=== PATIENT | female | born 1990 | race Two or more races ===

== ENCOUNTER 2017-08-26 07:00 | Day surgery (SDC) | payer OTHER ==
[~2017-08-26] VITALS: Ht 160 cm; Wt 70.3 kg
[~2017-08-26 07:00] MED LIST: TYLENOL-CODEINE1 TAB PO
== END 2017-08-26 13:00 | disposition home or self-care (01) ==
LOC: CIR.AMB 07:00 → SURH 10:00 → EDSTATUS 11:15 → SURH 11:15 → CIR.AMB 13:00 → O/R 14:00
DX: N80.1 Endometriosis of ovary (principal); N83.292 Other ovarian cyst, left side

== ENCOUNTER 2019-01-20 16:53 | Outpatient (CLI) | payer OTHER | END 2019-01-20 18:00 | disposition home or self-care (01) | LOC: LAB 16:53 | DX: J11.89 Influenza due to unidentified influenza virus with other manifestations (principal); J06.9 Acute upper respiratory infection, unspecified ==

== ENCOUNTER 2021-03-20 22:23 | Emergency (ER) | payer OTHER ==
[~2021-03-20] VITALS: Ht 162.6 cm; Wt 60.3 kg
[2021-03-21] MEDS ORDERED: BENADRYL25 MG PO (02:18)
[2021-03-21] MEDS ORDERED: MEDROL8 MG PO (02:18)
== END 2021-03-21 02:29 ==
LOC: ER 22:23
DX: T78.1XXA Other adverse food reactions, not elsewhere classified, initial encounter (principal)

== ENCOUNTER 2022-07-23 05:30 | Day surgery (SDC) | payer OTHER ==
[~2022-07-23] VITALS: Ht 160 cm; Wt 77.1 kg
[~2022-07-23 05:30] MED LIST changes: +BENADRYL25 MG PO; +MEDROL8 MG PO
== END 2022-07-23 14:05 | disposition home or self-care (01) ==
LOC: CIR.AMB 05:30
PROVIDERS: ATTEND Obstetrics & Gynecology Gynecologic Oncology
DX: N80.103 Endometriosis of bilateral ovaries, unspecified depth (principal); N73.6 Female pelvic peritoneal adhesions (postinfective); N83.01 Follicular cyst of right ovary; E16.2 Hypoglycemia, unspecified; Z91.041 Radiographic dye allergy status; Z20.822 Contact with and (suspected) exposure to COVID-19